=== PATIENT | male | born 1970 | race Hispanic/Latino ===

== ENCOUNTER → 2017-01-29 | Outpatient (CLI) | payer OTHER ==
--- NOTE | 2017-01-29 10:22 | REP ---
Chest x-ray: Two views. History: Left chest pain. . Comparison study: January 29, 2017 left rib views. The . Findings: The lungs are well inflated and free of infiltrate. The pleural angles are sharp. The heart size is normal. Pulmonary vasculature is not increased. No significant bony abnormality is seen. Impression: Negative chest x-ray. Signed by Marbin Hart MD 01/29/2017 10:13 A
--- NOTE | 2017-01-29 10:33 | REP ---
Left rib series: Three views. History: Left chest pain. Comparison is made with today's PA and lateral radiographs. Findings: There is no visible rib fracture or bony destructive lesion seen. Bones, joints, and soft tissues are radiographically unremarkable. Impression: Negative left rib views. Signed by Marbin Hart MD 01/29/2017 01:25 P
== END ==
LOC: M RAD 08:51
PROVIDERS: ATTEND Surgery
DX: R07.89 Other chest pain (principal)